=== PATIENT | female | born 1980 | race Hispanic/Latino ===

== ENCOUNTER → 2020-03-12 | Outpatient (CLI) | payer MEDICAID ==
--- NOTE | 2020-03-13 07:33 | US ---
PROVIDED CLINICAL HISTORY/REASON FOR EXAM: GOITER TECHNIQUE: Real time sonographic examination was performed by a adobe maker and multiple longitudinal and transverse ultrasound images through the thyroid gland were acquired. In addition, Doppler was performed. COMPARISON: None available. FINDINGS: The right thyroid lobe measures 7.4 x 2.9 x 2.7 cm and the left thyroid lobe measures 6.1 x 3.1 x 2.2 cm. The isthmus measures 0.7 cm. Enlarged, heterogeneous thyroid gland. TI-RADS Nodule: 1 Location: Right mid Size: 3.3 x 2.5 x 2.3 cm Composition: Solid - 2 Echogenicity: Hyper/iso-echoic - 1 Shape: Mhcqz-srab-jodp - 0 Margin: Smooth - 0 Echogenic foci: None - 0 TI-RADS Total Points: 3 (TR-3) TR- TR-3 > 2.5 cm. Recommend FNA. TI-RADS Nodule: 2 Location: Right inferior Size: 1.8 x 1.6 x 1.3 cm Composition: Mixed cystic and solid - 1 Echogenicity: Hyper/iso-echoic - 1 Shape: Sftqg-xeme-yiam - 0 Margin: Smooth - 0 Echogenic foci: None - 0 TI-RADS Total Points: 2 (TR-2) TR- TR-2: No further follow up. TI-RADS Nodule: 3 Location: Isthmus Size: 1.6 x 1.2 x 1.7 cm Composition: Solid - 2 Echogenicity: Hyper/iso-echoic - 1 Shape: Qlrfq-nlyn-qunu - 0 Margin: Smooth - 0 Echogenic foci: None - 0 TI-RADS Total Points: 3 (TR-3) TR- TR-3 >1.5 cm. Recommend annual follow up. TI-RADS Nodule: 4 Location: Left inferior Size: 1.8 x 1.3 x 1.7 cm Composition: Solid - 2 Echogenicity: Hyper/iso-echoic - 1 Shape: Emzcr-zqhe-bfdg - 0 Margin: Smooth - 0 Echogenic foci: None - 0 TI-RADS Total Points: 3 (TR-3) TR- TR-3 >1.5 cm. Recommend annual follow up. Spongiform inferior left thyroid lobe nodule measuring 1.7 cm. No follow-up indicated. No significant cervical lymphadenopathy is identified. IMPRESSION: Right thyroid lobe nodule #1 measuring 3.3 cm. Recommend ultrasound-guided FNA. Thyroid nodules #3 and #4 measuring 1.7 cm and 1.8 cm respectively. Recommend annual surveillance. Electronically signed by: Gaurav Hardy MD 03/13/2020 7:32 AM CDT
== END ==
LOC: US 14:00
PROVIDERS: ATTEND Emergency Medicine
DX: E04.2 Nontoxic multinodular goiter (principal)